=== PATIENT | male | born 1955 | race Caucasian/White ===

== ENCOUNTER 2018-08-29 05:47 | Day surgery (SDC) | payer BC ==
[~2018-08-29] VITALS: Ht 185.4 cm; Wt 84.4 kg
[2018-08-29 06:28] VITALS: BP 147/92; PULSE 64; TEMP 98.1
[2018-08-29] MEDS ORDERED: LUMIGAN 2.5 ML2.5 M1 OP (06:39)
[2018-08-29] MEDS ORDERED: ZESTRIL 20MG TA20 MG PO (06:40)
[2018-08-29] MEDS ORDERED: FLAREX 5 ML5 M1 OS (06:41)
[2018-08-29] MEDS ORDERED: FLAREX 5 ML5 M1 OD (06:43)
[2018-08-29] MEDS ORDERED: TRUSOPT OCUMETE10 ML OU (06:43)
[2018-08-29] MEDS ORDERED: TUMS500 MG PO (06:45)
[2018-08-29] MEDS ORDERED: TYLENOL 325MG325 MG PO (06:46)
--- NOTE | 2018-08-29 06:46 | NUR ---
TO RM AT 0557- CALL LIGHT IN REACH AT BEDSIDE.
[2018-08-29 09:56] VITALS: BP 135/79; PULSE 67; TEMP 97.4
--- NOTE | 2018-08-29 09:56 | NUR ---
TO RM 1 PER CART FROM [facility]. ALERT ORIENTED X3, SPEECH SLIGHTLY SLURRED. TALKING WITH STAFF, AND . DR BETANCOURT INTO TALK TO PATIENT. DRESSINGS CLEAN DRY INTACT.
[2018-08-29] MEDS ORDERED: NORCO 325 MG-51 TAB PO (10:02)
[2018-08-29 10:06] VITALS: BP 141/84; PULSE 66
--- NOTE | 2018-08-29 10:06 | NUR ---
C/O MILD PAIN 10/22. DENIES NEED FOR PAIN MED. RECEIVED WATER AND TAKING SIPS.
[2018-08-29 10:25] VITALS: BP 132/84; PULSE 61
--- NOTE | 2018-08-29 10:25 | NUR ---
RECEIVED COFFEE, MUFFIN AND ZAK CRACKERS.
[2018-08-29 10:50] VITALS: BP 131/87; PULSE 64
--- NOTE | 2018-08-29 10:50 | NUR ---
PATIENT STATED HE FELT A LITTLE NAUSETED PAIN STILL 10/22, RECEIVED NORCO 5MG
--- NOTE | 2018-08-29 11:00 | NUR ---
PATIENT STATED HE'S FEELING BETTER, BUT NOT READY TO USE BATHROOM YET.
--- NOTE | 2018-08-29 11:17 | NUR ---
PATIENT STATED HE WAS FEELING BETTER. UP AMBULATED TO BATHROOM .
--- NOTE | 2018-08-29 11:35 | NUR ---
RECEIVED DISCHARGE INSTRUCTIONS AND VERBALIZED UNDERSTANDING. DISCONTINUED IV AND INT- CATHETER INTACT. PATIENT GETTING DRESSED WITH ASSIST OF .
--- NOTE | 2018-08-29 11:45 | NUR ---
DISCHARGED PER WC BY NURSING STAFF TO PRIVATE CAR IN CARE OF -ROSAURA.
== END 2018-08-29 11:45 | disposition home or self-care (01) ==
LOC: SDCO 05:47
DX: K40.90 Unilateral inguinal hernia, without obstruction or gangrene, not specified as recurrent (principal); K42.9 Umbilical hernia without obstruction or gangrene; N40.1 Benign prostatic hyperplasia with lower urinary tract symptoms; R35.1 Nocturia; Z79.899 Other long term (current) drug therapy; I10 Essential (primary) hypertension; Z80.6 Family history of leukemia; Z82.49 Family history of ischemic heart disease and other diseases of the circulatory system; E78.00 Pure hypercholesterolemia, unspecified
CPT/HCPCS: C1781; J0690; J1100; J1885; J2250; J2405; J2704; J3010; J7120

== ENCOUNTER 2019-07-25 05:56 | Day surgery (SDC) | payer BC ==
[2019-07-25] VITALS (7 sets, daily range): BP systolic 125–145; BP diastolic 77–93; PULSE 64–80; TEMP 97.5–97.7
[~2019-07-25] VITALS: Ht 185.4 cm; Wt 82.6 kg
[~2019-07-25 05:56] MED LIST: FLAREX 5 ML5 M1 OD; FLAREX 5 ML5 M1 OS; LUMIGAN 2.5 ML2.5 M1 OP; NORCO 325 MG-51 TAB PO; TRUSOPT OCUMETE10 ML OU; TUMS500 MG PO; TYLENOL 325MG325 MG PO; ZESTRIL 20MG TA20 MG PO
[2019-07-25] MEDS ORDERED: NORCO 325 MG-51 TAB PO (10:26)
--- NOTE | 2019-07-25 11:40 | NUR ---
Pt to [facility] [place] bay [address] via cart. Pt drowsy, but awake. Pt rates pain 6/10 to abdomen. Pt states pain is "tolerable". Pt denies nausea. Water and crackers given per pt request. in room. Bandaids to abdomen x4 are clean, dry, and intact. Will let pt rest. VSS. Call light within reach.
--- NOTE | 2019-07-25 11:55 | NUR ---
Pt continues to rest. Denies needs at this time. Call light within reach.
--- NOTE | 2019-07-25 12:10 | NUR ---
Pt continues to rest. Denies needs. Call light within reach.
--- NOTE | 2019-07-25 12:25 | NUR ---
Pt sleeping. Respirations even and unlabored. Will continue to monitor. Call light within reach.
--- NOTE | 2019-07-25 12:55 | NUR ---
Pt awake. Soup and coffee given per pt request. HOB elevated per request. Pt reports pain as tolerable. Will continue to monitor.
--- NOTE | 2019-07-25 13:35 | NUR ---
Pt up to restroom with stand by assistance. Pt voids large amount without difficulties. Pt back to room. Motrin 600mg PO given per PRN orders. Pt going to dress with 's assistance. Call light within reach.
--- NOTE | 2019-07-25 14:50 | NUR ---
Discharge instructions reviewed. Pt and voice understanding. IV site discontinued with all parts intact.
--- NOTE | 2019-07-25 15:00 | NUR ---
Pt escorted to private car via wheel chair. Pt accompanied home by his .
== END 2019-07-25 15:00 | disposition home or self-care (01) ==
LOC: SDCO 05:56
DX: K40.41 Unilateral inguinal hernia, with gangrene, recurrent (principal); K40.90 Unilateral inguinal hernia, without obstruction or gangrene, not specified as recurrent; I10 Essential (primary) hypertension
CPT/HCPCS: C1781; J0360; J0690; J1100; J2175; J2405; J2550; J2704; J3010; J7120